=== PATIENT | female | born 1985 ===

== ENCOUNTER 2018-12-23 16:10 | Emergency (ER) | payer MEDICAID ==
[~2018-12-23] VITALS: Ht 154.9 cm; Wt 45.6 kg
[2018-12-23 16:12] VITALS: BP 104/74
--- NOTE | 2018-12-23 16:49 | NUR ---
PT NOL x3, ATTEMPTED TO CALL PT, NO PHONE # ON RECORD.
== END 2018-12-23 16:48 | disposition left against medical advice (07) ==
LOC: ER 16:10
DX: M79.601 Pain in right arm (principal); Z53.21 Procedure and treatment not carried out due to patient leaving prior to being seen by health care provider